=== PATIENT | female | born 1970 | race Caucasian/White ===

== ENCOUNTER 2024-09-19 17:54 | Emergency (ER) | payer BC, SELFPAY ==
[2024-09-19] VITALS (7 sets, daily range): BP systolic 153–217; BP diastolic 93–139; BMI 23.5
--- NOTE | 2024-09-19 18:27 | ED.GENMED ---
History of Present Illness
General
Chief Complaint: Blood Pressure Problem
Source: patient
Exam Limitations: none
Time Seen by Provider: 09/19/24 18:09
Nursing documentation reviewed up to this point in time: agreed with
History of Present Illness
History of Present Illness:
54 yr old female presents to the ED for evaluation. Patient has a longstanding history of hypertension however for the past 10 years has not taken any medicine. She does not have a family doctor. She reports she used to be on Aceon however has
not taken in the past 10 years. She went to urgent care 2 days ago for a puncture wound in the recommended she come to the ER because of elevated blood pressure. She however has no symptoms. She denies any associated chest pain,shortness of
breath, blurred vision , headache nausea vomiting.
Past History
Past History
ED Past Medical History: HTN
Social History
Tobacco: Non-smoker
Drug: None
Review of Systems
Review of Systems
Allergies reviewed?: Yes
All Other Systems: ROS reviewed and negative except as documented in HPI and ROS
Constitutional: Reports no symptoms
Respiratory: Reports no symptoms; Denies trouble breathing
Cardiac: Reports no symptoms; Denies chest pain
ABD/GI: Reports no symptoms
Musculoskeletal: Reports no symptoms
Skin: Reports no symptoms
Neurological: Denies dizzy, headache or numbness
Psychiatric: Reports no symptoms
Phy Exam
General Physical Exam
General Presentation: no apparent distress
General age: appears stated age
General Skin: warm and dry
General Habitus: normal
General Mental: alert
General Hydration: appears well hydrated
Cardiovascular Exam
Cardiovascular Exam: regular rate/rhythm, no murmur and normal peripheral pulses
Pulmonary Exam
Pulmonary Exam: lungs clear and no respiratory distress
Neurological Exam
Neurological Exam: alert and oriented x3
Musculoskeletal Exam
Musculoskeletal Exam: full ROM
Skin Exam
Skin Exam: normal color and warm/dry
Psychiatric Exam
Psychiatric Exam: normal mood/affect
Course
Orders/Labs/Results
Orders:
Orders
09/19/24 17:59
EKG [Electrocardiogram (*1)] Urgent
Reason for Study: Hypertension, Benign
09/19/24 18:00
EKG- Treatment ONCE
09/19/24 18:25
Electrocardiogram (*1) Stat
Reason for Study: Abdominal Pain
Cardiac Monitoring- Treatment ONCE
EKG- Treatment ONCE
IV Insert/Care/Rem.- Treatment PRN
09/19/24 18:43
Complete Blood Count/With Diff Urgent
Comprehensive Metabolic Panel Urgent
09/19/24 20:44
Labetalol HCl [Trandate] 10 mg IV NOW STA
Abnormal Lab Results
09/19/24
18:43
MPV 11.0 H fL
(7.4-10.4)
Chloride 109 H mmol/L
(98-107)
BUN 21 H mg/dl
(7-17)
09/19/24 18:43
09/19/24 18:43
Vital Signs
Initial and Last Documented VS:
Initial Vital Signs
Temp Pulse Resp BP Pulse Ox
98.7 F 98 18 217/139 98
09/19/24 17:56 09/19/24 17:56 09/19/24 17:56 09/19/24 17:56 09/19/24 17:56
Last Documented Vital Signs
Temp Pulse Resp BP Pulse Ox
98.7 F 65 14 153/108 98
09/19/24 17:56 09/19/24 21:30 09/19/24 21:30 09/19/24 21:30 09/19/24 17:56
Toilet Attendant consulted with Physician
Toilet Attendant consulted with physician?: Yes
Name of Physician Consulted: Pricilla
MDM/Problems Addressed
Differential Diagnosis Includes:
not limited to:
MDM/Problems Addressed:
As documented patient is a 54-year-old female with longstanding history of hypertension however has not taken meds in over 10 years. She does not a family doctor. She does smoke. She has no physical complaints including no headache chest pain
shortness of breath or vision. She went to urgent care 2 days ago for puncture wound and was told to go to the ER because her blood pressure was elevated. Her blood pressure is elevated here however she is nontoxic. She is in no acute distress,
normal renal function no acute findings and EKG. Case to ED physician . Pt was given a dose of IV Labetolol .
will start on lisinopril. Patient reports she previously took an YOLANDA inhibitor years ago. Will discharge patient with instructions for family practice clinic
I did review the importance of being compliant with blood pressure medication the risks of untreated blood pressure.
I also reviewed the importance of smoking cessation
Chronic conditions affecting care:
smoking history
*Pulse Oximetry
Patient hypoxic: no
*EKG
Interpreted by ED Provider?: Yes
Comparison EKG: no comparison EKG present
Heart Rate: 88
Rate: normal
Rhythm: sinus
Ischemia: non-specific ST changes
*Critical Care Note
Total Time (30-74mins, 75-104mins- exclusive of procedures): Not Applicable
ED Attending Note
-
Portions of this chart may have been created with voice recognition software.� Occasional wrong word or��sound alike� substitutions may have occurred due to the inherent limitations of voice recognition software.
Discharge Plan
Departure
Patient Disposition: Home (Routine Discharge)
Date of Disposition: 09/19/24
Time of Disposition: 22:27
Patient with high blood pressure during this ER visit?: Yes
Covid-19: Not Applicable
Discharge Problem:
elevated blood pressure
Instructions: High Blood Pressure (DC), BLOOD PRESSURE
Prescriptions:
New
lisinopril 10 mg tablet
10 mg PO DAILY Qty: 30 0RF
No Action
doxycycline hyclate 100 MG capsule
100 mg PO Q12 Qty: 14 0RF
Referrals:
Family Residency Program [Provider Group]
[facility] [Outside]
NONE,* [Family Provider] -
Activity Restrictions/Additional Instructions:
As discussed please start blood pressure medication tomorrow. This medication was sent to your pharmacy. Take as directed.
Please watch your salt intake follow a low sodium diet
In addition please try to stop smoking
Please follow-up with family practice clinic .please call tomorrow to make an appointment .
return if any worsening of symptoms including headache blurry vision chest pain shortness of breath.
Interventions
Interventions:
*Risk Screen - Suicide Last Done: 09/19/24 17:56
*General Assessment Last Done: 09/19/24 17:56
*Neglect/Abuse Screening Last Done: 09/19/24 17:56
*ED- Fall Risk Assessment Last Done: 09/19/24 19:42
*ED COVID-19 Vaccine History Last Done: 09/19/24 19:42
ED- Cardiac Assessment Last Done: 09/19/24 19:22
ED- Neurological Assessment Last Done: 09/19/24 19:22
ED- Pulmonary Assessment Last Done: 09/19/24 19:22
Discharge Date and Time
Print Language: MONGOLIAN
[2024-09-19 19:06] LABS: % Basophils 1.8 % (0-2); % Eosinophils 2.8 % (0-6); % Immature Granulocytes 0.4 % (0-0.5); % Lymphocytes 25.9 % (20.5-51.1); % Monocytes 8.7 % (1.7-9.3); % Neutrophils 60.4 % (42.2-75.2); Absolute Basophils 0.1 10^3/uL (0-0.2); Absolute Eosinophils 0.2 10^3/uL (0-0.7); Absolute Lymphocytes 1.4 10^3/uL (1.2-3.4); Absolute Monocytes 0.5 10^3/uL (0.1-0.6); Absolute Neutrophils 3.3 10^3/uL (1.4-6.5); Hematocrit 42.4 % (37.0-47.0); Hemoglobin 14.3 g/dL (12.0-16.0); Mean Corp Hgb Conc. 33.7 g/dL (33.0-37.0); Mean Corpuscular Hgb 30.6 pg (27.0-31.0); Mean Corpuscular Volume 90.8 fL (81.0-99.0); Nucleated Red Blood Cells % 0 %; Platelet Count 256 10^3/uL (130-400); Red Blood Cell Count 4.67 10^6/uL (4.20-5.40); Red Cell Dist. Width 12.8 % (11.5-14.5); White Blood Cell Count 5.4 10^3/uL (4.8-10.8)
[2024-09-19 19:22] LABS: ALT (SGPT) 18 U/L (0-35); AST (SGOT) 25 U/L (14-36); Albumin 4.5 g/dl (3.5-5.0); Alkaline Phosphatase 82 U/L (38-126); Blood Urea Nitrogen 21 mg/dl (7-17); Calcium 8.6 mg/dl (8.4-10.2); Carbon Dioxide 24 mmol/L (22-30); Chloride 109 mmol/L (98-107); Estimated Creatinine Clearance 105 ml/min; Glucose 95 mg/dl (70-99); Potassium 4.2 mmol/L (3.5-5.1); Sodium 143 mmol/L (135-145); Total Bilirubin 0.5 mg/dl (0.2-1.3); Total Protein 7.1 g/dl (6.3-8.2); eGFR > 60.00
[2024-09-19] MEDS: TRANDATE 10 MG IV (20:52)
== END 2024-09-19 22:40 | disposition home or self-care (01) ==
LOC: EMR 17:54
PROVIDERS: Nurse Practitioner; EMERGENCY PHYSICIAN Emergency Medicine
DX: I10 Essential (primary) hypertension (principal); F17.200 Nicotine dependence, unspecified, uncomplicated; Z88.0 Allergy status to penicillin; Z88.2 Allergy status to sulfonamides
CPT/HCPCS: 99284; 96374; 80053; 85025; 93005